=== PATIENT | female | born 1990 | race Caucasian/White ===

== ENCOUNTER 2022-05-28 00:17 | Emergency (ER) | payer MEDICAID ==
[~2022-05-28] VITALS: Ht 172.7 cm; Wt 102.0 kg
[2022-05-28 00:30] VITALS: BP 128/88
[2022-05-28] MEDS ORDERED: DIPHENHYDRAMINE 50MG/ML VIAL IV ONE (01:30)
[2022-05-28] MEDS ORDERED: SODIUM CHLORIDE 0.9% 1,000 ML IV ONE (01:30)
[2022-05-28] MEDS ORDERED: METOCLOPRAMIDE HCL 10MG/2ML VIAL IV ONE (01:30)
== END 2022-05-28 02:24 | disposition left against medical advice (07) ==
LOC: ER 02:03
DX: R51.9 Headache, unspecified (principal); J45.909 Unspecified asthma, uncomplicated; Z98.890 Other specified postprocedural states
CPT/HCPCS: 99283; J7030